=== PATIENT | female | born 1985 | race African-American/Black ===

== ENCOUNTER 2016-11-02 07:15 | Day surgery (SDC) | payer OTHER ==
[~2016-11-02] VITALS: Ht 160 cm; Wt 61.2 kg
[~2016-11-02 07:15] MED LIST: IBUP-1114 PO
[2016-11-02] MEDS ORDERED: D5W/0.2% SODIUM CHLORIDE 250 ML IV ONE (07:30)
[2016-11-02 07:54] LABS: MEAN CORPUSCULAR HEMOGLOBIN 32.4 pg (27.0-33.0); MEAN CORPUSCULAR HGB CONC 34.7 g/dl (32.0-36.5); MEAN CORPUSCULAR VOLUME 93.5 fl (80.0-96.0); RED CELL DISTRIBUTION WIDTH 11.7 % (11.5-14.5); WHITE BLOOD COUNT 3.7 K/mm3 (4.0-10.0)
[2016-11-02] MEDS ORDERED: LR 1,000 ML IV ONE (08:00)
[2016-11-02 08:13] LABS: ANION GAP 10 MEQ/L (8-16); BLOOD UREA NITROGEN 6 MG/DL (7-18); CALCIUM LEVEL 8.5 MG/DL (8.5-10.1); CARBON DIOXIDE LEVEL 24 MEQ/L (21-32); CHLORIDE LEVEL 111 MEQ/L (98-107); CREATININE FOR GFR 0.68 MG/DL (0.55-1.02); GLOMERULAR FILTRATION RATE > 60.0 (>60); GLUCOSE, FASTING 86 MG/DL (70-105); HCG, SERUM QUANTITATIVE < 1.0 MIU/ML; POTASSIUM SERUM 3.6 MEQ/L (3.5-5.1); SODIUM LEVEL 145 MEQ/L (136-145)
[2016-11-02] MEDS ORDERED: BUPIVACAINE HCL 0.5% 10 ML VIAL As Ordered ONE (08:37)
[2016-11-02] MEDS ORDERED: ACETAMINOPHEN 650 MG SUPP As Ordered ONE (08:37)
[2016-11-02] MEDS ORDERED: dexameTHASONE 4 MG/ML 1ML VIAL (J1100) As Ordered ONE (09:07)
[2016-11-02] MEDS ORDERED: GLYCOPYRROLATE INJ 0.2 MG/ML 2 ML VIAL As Ordered ONE ×2 (09:07→10:05)
[2016-11-02] MEDS ORDERED: fentaNYL 100 MCG/2 ML INJECTION (J3010) As Ordered ONE (09:07)
[2016-11-02] MEDS ORDERED: MIDAZOLAM INJ 2 MG/2 ML VIAL (J2250) As Ordered ONE (09:07)
[2016-11-02] MEDS ORDERED: ROCURONIUM BROMIDE 50 MG/5 ML VIAL/SYRINGE As Ordered ONE (09:07)
[2016-11-02] MEDS ORDERED: METOCLOPRAMIDE INJ 10MG/2ML VIAL (J2765) As Ordered ONE (09:07)
[2016-11-02] MEDS ORDERED: PROPOFOL 500 MG/50 ML VIAL As Ordered ONE (09:07)
[2016-11-02] MEDS ORDERED: NEOSTIGMINE 1MG/ML 5 ML SYRINGE (J2710) As Ordered ONE (09:07)
[2016-11-02] MEDS ORDERED: ONDANSETRON 4MG/2ML VIAL (J2405) As Ordered ONE (09:07)
[2016-11-02] MEDS ORDERED: METOCLOPRAMIDE INJ 10MG/2ML VIAL (J2765) IV PRN (10:45)
[2016-11-02] MEDS ORDERED: ONDANSETRON 4MG/2ML VIAL (J2405) IV PRN (10:45)
[2016-11-02] MEDS ORDERED: KETOROLAC 30 MG/ML VIAL (J1885) IV PRN (10:45)
[2016-11-02] MEDS ORDERED: LR 1,000 ML IV SCH (10:45)
[2016-11-02] MEDS ORDERED: PERCOCET 5MG/325MG TAB PO PRN (10:45)
[2016-11-02] MEDS: fentaNYL 100 MCG/2 ML INJECTION (J3010) IV PRN ×2 (10:55→11:00)
[2016-11-02 13:00] VITALS: BP 124/80
--- NOTE | 2016-11-05 11:12 | RO ---
DATE OF PROCEDURE: 11/02/2016 PREOPERATIVE DIAGNOSIS: Satisfied parity POSTOPERATIVE DIAGNOSIS: Satisfied parity OPERATION PROPOSED: Laparoscopy, bilateral salpingectomy, hysteroscopy, dilation and curettage, removal of IUCD. OPERATION PERFORMED: Laparoscopy, bilateral salpingectomy, hysteroscopy, dilation and curettage, removal of IUCD. SURGEON: Ankit Singh MD SUPERVISOR REFINING: Javan Grider MD ANESTHESIA: General plus local anesthetic for intraperitoneal procedures. ESTIMATED BLOOD LOSS: Less than 20 mL DESCRIPTION OF PROCEDURE: Under adequate anesthesia, prepped, draped in the lithotomy position, Hilliard catheter in the bladder draining clear urine, acetaminophen suppository 1300 mg per rectum and sequential on board, no antibiotics required, time-out performed. Weighted speculum in the vagina, single-tooth tenaculum on the anterior lip of the cervix. Uterine sound was placed in the endocervical canal. Reprepping and draping, small subumbilical incision was made. Direct entry into the abdomen with no evidence of perforation, hemorrhage or bleeding. Panoramic review of the right upper quadrant was normal. The right round ligament was normal. Anterior aspect of bladder was clear. Posterior cul-de-sac was clear. Left round ligament was normal. Upper left quadrant was normal. Uterus was slightly enlarged, had a posterior wall fibroid, which is inconsequential to this lady. A 3 mm port was placed on the right side and a 3 mm port on the left side. We used an elevated the tube on the right side using the harmonic scalpel. We excised off the right tube uneventfully. We then went and did the procedure on the left side, excising off the left tube as well. Both were pulled out through the 3-mm ports. On reevaluating, we found that there was some bleeding from the mesosalpinx on the right side and two hemoclips were applied to stem the flow and create good hemostasis. We put 250 mL of normal saline in the abdomen was flushed out the excess blood that was there, removed the 250 mL of normal saline. No evidence of active bleeding was noted. We then went ahead below and we removed the uterine elevator. The uterus was sounded to 9 cm and dilated to a Ortega 7. The hysteroscope was introduced. Panoramic review revealed the IUCD, which was embedded in the myometrium on the right side. We were easily able to, under direct vision remove the IUCD. It had endometrial tissue on it and it was sent to pathology under separate cover. We used 150 mL in and 150 mL out. Instruments were removed. The Hilliard catheter was removed. Instrument and pad count were correct. We then closed the umbilical area, closed the two lateral ports, Marcaine 0.25% 10 mL to the incisional sites. Skin tapes were applied. The patient was taken back to recovery in good condition.
== END 2016-11-02 13:45 | disposition home or self-care (01) ==
LOC: M SDC 07:15
PROVIDERS: ATTEND Obstetrics & Gynecology
DX: Z30.2 Encounter for sterilization (principal); T83.39XA Other mechanical complication of intrauterine contraceptive device, initial encounter
CPT/HCPCS: 36415; 58562; 58661; 80048; 84702; 85027; 88302; 88305; J1100; J1885; J2250; J2405; J2710; J2765; J3010

== ENCOUNTER → 2017-02-14 | Outpatient (REF) | LOC: M LAB 09:37 | PROVIDERS: ATTEND Nurse Practitioner Adult Health | DX: Z00.00 Encounter for general adult medical examination without abnormal findings (principal) ==

== ENCOUNTER 2017-04-29 11:38 | Emergency (ER) | payer OTHER ==
[2017-04-29 12:32] LABS: BASO % 0.3 % (0.0-1.0); EOS # 0.1 10^3/uL (0.0-0.50); HEMATOCRIT 35.9 % (36.0-47.0); HEMOGLOBIN 11.9 g/dl (12.0-16.0); IMMATURE GRANULOCYTE % 0.2 % (0-3.0); LYMPH # 2.9 10^3/uL (1.5-4.5); LYMPH % 47.5 % (24.0-44.0); MEAN CORPUSCULAR HEMOGLOBIN 30.5 pg (27.0-33.0); MEAN CORPUSCULAR HGB CONC 33.1 g/dl (32.0-36.5); MEAN CORPUSCULAR VOLUME 92.1 fl (80.0-96.0); MONO # 0.4 10^3/uL (0.0-0.8); MONO % 6.5 % (0.0-5.0); NEUTROPHILS # 2.7 10^3/uL (1.8-7.7); NEUTROPHILS % 44.5 % (36.0-66.0); PLATELET COUNT, AUTOMATED 264 10^3/uL (150-450)
[2017-04-29 12:48] LABS: NT-PRO BNP 18 PG/ML (<125)
[2017-04-29 12:49] LABS: ANION GAP 4 MEQ/L (8-16); BLOOD UREA NITROGEN 8 MG/DL (7-18); CALCIUM LEVEL 8.4 MG/DL (8.5-10.1); CARBON DIOXIDE LEVEL 29 MEQ/L (21-32); CHLORIDE LEVEL 109 MEQ/L (98-107); CPK CREATINE PHOSPHOKINASE 128 U/L (26-192); GLOMERULAR FILTRATION RATE > 60.0 (>60); GLUCOSE, FASTING 76 MG/DL (70-100); POTASSIUM SERUM 3.8 MEQ/L (3.5-5.1); SODIUM LEVEL 142 MEQ/L (136-145); TROPONIN I < 0.02 NG/ML (< 0.10)
[2017-04-29 12:50] LABS: MB/CK RELATIVE INDEX 0.78 (< OR =4)
[2017-04-29] MEDS: GI COCKTAIL 50ML BTL(HYOSCYAMINE/MAALOX/LIDOCAINE VISCOUS)(1:3:1) PO (12:59)
== END 2017-04-29 13:35 | disposition home or self-care (01) ==
LOC: M ED 11:38
DX: R07.9 Chest pain, unspecified (principal); K21.9 Gastro-esophageal reflux disease without esophagitis
CPT/HCPCS: 71045

== ENCOUNTER 2017-06-24 11:21 | Emergency (ER) | payer OTHER ==
[2017-06-24 11:22] LABS: BASO % 0.3 % (0.0-1.0); EOS % 0.3 % (0.0-3.0); HEMATOCRIT 37.4 % (36.0-47.0); HEMOGLOBIN 12.8 g/dl (12.0-15.5); IMMATURE GRANULOCYTE % 0.2 % (0-3.0); LYMPH # 2.5 10^3/uL (1.5-4.5); LYMPH % 43.1 % (24.0-44.0); MEAN CORPUSCULAR HEMOGLOBIN 31.1 pg (27.0-33.0); MEAN CORPUSCULAR HGB CONC 34.2 g/dl (32.0-36.5); MONO # 0.3 10^3/uL (0.0-0.8); MONO % 5.3 % (0.0-5.0); NEUTROPHILS % 50.8 % (36.0-66.0); PLATELET COUNT, AUTOMATED 228 10^3/uL (150-450); RED BLOOD COUNT 4.11 10^6/uL (4.00-5.40); RED CELL DISTRIBUTION WIDTH 12.4 % (11.5-14.5); WHITE BLOOD COUNT 5.9 10^3/uL (4.0-10.0)
[2017-06-24] MEDS: NS 1,000 ML IV (11:44)
[2017-06-24] MEDS: diphenhydrAMINE INJ 50MG/ML VIAL (J1200) IV (11:47)
[2017-06-24] MEDS: METOCLOPRAMIDE INJ 10MG/2ML VIAL (J2765) IV (11:50)
[2017-06-24] MEDS: KETOROLAC 30 MG/ML VIAL (J1885) IV (11:50)
[2017-06-24 11:51] LABS: ALBUMIN/GLOBULIN RATIO 1.11 (1.00-1.93); ALKALINE PHOSPHATASE 70 U/L (45-117); ALT/SGPT 19 U/L (12-78); ANION GAP 5 MEQ/L (8-16); AST/SGOT 17 U/L (7-37); BILIRUBIN,TOTAL 0.8 MG/DL (0.2-1.0); BLOOD UREA NITROGEN 9 MG/DL (7-18); CALCIUM LEVEL 8.8 MG/DL (8.5-10.1); CARBON DIOXIDE LEVEL 29 MEQ/L (21-32); CHLORIDE LEVEL 110 MEQ/L (98-107); CREATININE FOR GFR 0.61 MG/DL (0.55-1.30); GLOMERULAR FILTRATION RATE > 60.0 (>60); GLUCOSE, FASTING 87 MG/DL (70-100); LIPASE 125 U/L (73-393); POTASSIUM SERUM 3.8 MEQ/L (3.5-5.1); SODIUM LEVEL 144 MEQ/L (136-145); TOTAL PROTEIN 7.6 GM/DL (6.4-8.2)
[2017-06-24 11:53] LABS: INFLUENZA A AMPLIFICATION NEGATIVE (NEGATIVE); INFLUENZA B AMPLIFICATION NEGATIVE (NEGATIVE)
[2017-06-24 11:59] LABS: AMORPHOUS SEDIMENT MODERATE (NEGATIVE); APPEARANCE, URINE CLOUDY (CLEAR); BACTERIA, URINE AUTO NEGATIVE (NEGATIVE); BILIRUBIN, URINE AUTO NEGATIVE (NEGATIVE); BLOOD, URINE BLOOD NEGATIVE (NEGATIVE); COLOR, URINE YELLOW (YELLOW); GLUCOSE, URINE (UA) AUTO NEGATIVE (NEGATIVE); KETONE, URINE AUTO NEGATIVE (NEGATIVE); LEUKOCYTE ESTERASE, URINE AUTO NEGATIVE (NEGATIVE); MUCUS, URINE SMALL (NEGATIVE); NITRITE, URINE AUTO NEGATIVE (NEGATIVE); PROTEIN, URINE AUTO 1+ mg/dL (NEGATIVE); RBC, URINE AUTO 2 /HPF (0-3); SPECIFIC GRAVITY URINE AUTO 1.028 (1.002-1.035); SQUAMOUS EPITHELIAL CELL UR AU 11 /HPF (0-6); UROBILINOGEN, URINE AUTO 0.2 mg/dL (0.0-2.0); WBC, URINE AUTO 1 /HPF (0-3)
== END 2017-06-24 13:17 | disposition home or self-care (01) ==
LOC: M ED 11:21
DX: A08.4 Viral intestinal infection, unspecified (principal); G44.209 Tension-type headache, unspecified, not intractable
CPT/HCPCS: J1200